=== PATIENT | female | born 1945 | race Caucasian/White ===

== ENCOUNTER 2017-04-22 11:09 | Emergency (ER) | payer OTHER, MEDICARE ==
[2017-04-22] MEDS ORDERED: IBUPROFEN 600 MG TAB PO ONE (11:23)
[2017-04-22 11:29] VITALS: RESP 18
[2017-04-22 11:46] VITALS: BP 156/107; PULSE 85; TEMP 101.7; O2SAT 94
--- NOTE | 2017-04-22 11:46 | EDPHY ---
H & P Time Seen by Provider: 04/22/17 11:16 HPI/ROS: CHIEF COMPLAINT: Cough and fever HISTORY OF PRESENT ILLNESS: 71-year-old female with a history of pneumonia presents with cough and fever. Onset of a moist cough last evening. Associated with subjective fever and fatigue. No associated shortness of breath. No vomiting or diarrhea. Tolerating oral fluids well. REVIEW OF SYSTEMS: Eyes: No visual changes ENT: No sore throat Cardiac: No chest pain Gastrointestinal: No nausea, no vomiting, no abdominal pain Genitourinary: no dysuria Musculoskeletal: No leg pain or swelling Skin: No rash Neurological: No headache Psychiatric: No depression Past Medical/Surgical History: Pneumonia x2 Social History: No recent alcohol Smoking Status: Never smoked Physical Exam: General Appearance: Alert, pleasant, nontoxic-appearing Eyes: Pupils equal and round, no conjunctival pallor or injection ENT, Mouth: Mucous membranes moist Neck: Normal inspection Respiratory: Lungs are clear to auscultation Cardiovascular: Regular rate and rhythm Gastrointestinal: Abdomen is soft and nontender Neurological: A&O, nonfocal, normal gait Skin: Warm and dry, no rash Extremities: normal inspection Psychiatric: Mood and affect normal Constitutional: Initial Vital Signs Temperature (C) 36.6 C 04/22/17 11:23 Heart Rate 77 04/22/17 11:23 Respiratory Rate 18 04/22/17 11:23 Blood Pressure 214/105 H 04/22/17 11:23 O2 Sat (%) 97 04/22/17 11:23 O2 Delivery Mode Room Air Allergies/Adverse Reactions: Penicillins Allergy (Verified 09/14/12 10:27) Home Medications: Medication Instructions Recorded Azithromycin [Zithromax] 250 mg PO DAILY #6 tab 09/14/12 Mometasone Furoate Nasal [Nasonex] 1 sprays NASAL DAILY 09/14/12 Azithromycin [Zithromax] 250 mg PO DAILY #6 tab 04/22/17 Medical Decision Making - Diagnostics Imaging Results: Chest x-ray independently reviewed by me reveals no acute disease. ED Course/Re-evaluation: This patient presents with fever and cough. Chest x-ray reveals no evidence of pneumonia. However, given pneumonia x 2 and similar sx today, I will treat her with Zithromax. Elevated blood pressure noted. Repeat BP 156/101. Pt will f/u with PCP for ongoing BP management. Differential Diagnosis: Differential diagnosis includes though not to pneumonia, hypoxia, empyema, influenza - Data Points Medications Given: Discontinued Medications Ibuprofen (Motrin) 600 mg PO EDNOW ONE Stop: 04/22/17 11:24 Last Admin: 04/22/17 11:40 Dose: 600 mg Departure - Departure Disposition: Home, Routine, Self-Care Clinical Impression: Acute bronchitis Qualifiers: Bronchitis organism: unspecified organism Qualified Code(s): J20.9 - Acute bronchitis, unspecified Condition: Good Instructions: Acute Bronchitis (ED) Additional Instructions: Take Tylenol every 6 hours as needed for fever. Drink plenty of fluids. Return for worsening symptoms or any concerns. Referrals: JOE DOWNS [Primary Care Provider] - As per Instructions Prescriptions: Azithromycin [Zithromax] 250 mg PO DAILY #6 tab
== END 2017-04-22 12:08 | disposition home or self-care (01) ==
LOC: CED 11:09
DX: J20.9 Acute bronchitis, unspecified (principal)
CPT/HCPCS: 71020-PO

== ENCOUNTER 2017-11-21 10:54 | Observation (INO) | payer OTHER, MEDICARE ==
--- NOTE | 2017-11-21 11:17 | CPEKG ---
Heart Rate: 68 RR Interval: 882 P-R Interval: 148 QRSD Interval: 86 QT Interval: 432 QTC Interval: 460 P [place]: 28 QRS [place]: 13 T Wave [place]: -4 EKG Severity - BORDERLINE ECG - EKG Impression: SINUS RHYTHM EKG Impression: BORDERLINE T ABNORMALITIES, ANT-LAT LEADS Electronically Signed By: Get Dillard 23-Nov-2017 10:45:34
[2017-11-21] MEDS ORDERED: NITROGLYCERIN 0.4 MG BTL SL PRN (11:33)
[2017-11-21] MEDS ORDERED: ASPIRIN 81 MG CHEWABLE TAB PO ONE (11:33)
--- NOTE | 2017-11-21 11:39 | EDPHY ---
H & P Stated Complaint: Pt. states 4-5 days elevated BP, chest pressure also and sinus pressure Time Seen by Provider: 11/21/17 10:59 HPI/ROS: CHIEF COMPLAINT: Elevated blood pressure History by patient HISTORY OF PRESENT ILLNESS: 72-year-old woman with a history of hypertension and TIA presents complaining of elevated blood pressure for the past several days. She states that in the mornings it has been around 170/80 or 90 but that sometimes her diastolic goes up into the 120 region. Patient has been on losartan, simvastatin and aspirin for several years since she was diagnosed with the TIA however in the past few months she tapered the amount of medication she is taking and only takes these medicines 2-3 times a week or less. Because her blood pressure began running high again she began taking these medications daily over the past 4 days however she has not taken any medication today. This morning she was alarmed because her blood pressure seemed to be persistently high despite the fact that she got back on her medicines. She has noticed some tightness in her chest which she says she can' t distinguish from her symptoms of sinus congestion and cough but sometimes this gets worse when she exerts herself. She denies any dyspnea. She denies any new leg swelling (she has chronic swell related to a remote history of Waldenstroms lymphoma). Yesterday she noticed dizziness after going up stairs. She has also had feeling of pulsations in her arms and nausea and feeling warm but no diaphoresis. She denies any visual difficulties or focal numbness or weakness. Patient is seek been seen by [facility] in the past and had a negative stress test 2-3 years ago. She says her cardiology tired about a year ago. She has no family history of heart disease. She has no history of diabetes. She has never smoked. REVIEW OF SYSTEMS: As in HPI, and all other systems reviewed and are negative Source: Patient - Personal History Current Tetanus Diphtheria and Acellular Pertussis (TDAP): Yes - Medical/Surgical History Hx Asthma: No Hx Chronic Respiratory Disease: No Hx Diabetes: No Hx Cardiac Disease: No Hx Renal Disease: No Hx Cirrhosis: No Hx Alcoholism: No Hx HIV/AIDS: No Hx Splenectomy or Spleen Trauma: No Other PMH: Med hx-HTN,waldenstron's,DDD,lymphoma,hyperlipidemia,allergies,Hep C- resolved. Surg- - Social History Smoking Status: Never smoked - Physical Exam Exam: General Appearance: Alert, pleasant, nontoxic-appearing. Head: normocephalic, atraumatic Eyes: Pupils equal and round, reactive to light, no pallor or injection. Mouth: Mucous membranes moist. Respiratory: Normal, effort, lungs are clear to auscultation. No wheezes, rales or rhonchi. Cardiovascular: Regular rate and rhythm. S1, S2, no murmurs, gallops or rubs appreciated, no chest wall tenderness Gastrointestinal: Abdomen is soft and nontender, no masses, bowel sounds normal. Back: No CVA tenderness, no bony tenderness Neurological: Awake, alert and oriented x 3, no pronator drift, normal gait, Skin: Warm and dry, no rashes. Musculoskeletal: No deformities or tenderness. Extremities: full range of motion, no edema, DP2+ bilat Psychiatric: Patient has normal affect, there is no agitation. Constitutional: Initial Vital Signs Temperature (C) 36.5 C 11/21/17 11:05 Heart Rate 70 11/21/17 11:05 Respiratory Rate 16 11/21/17 11:05 Blood Pressure 187/116 H 11/21/17 11:05 O2 Sat (%) 96 11/21/17 11:05 O2 Delivery Mode Room Air Allergies/Adverse Reactions: Penicillins Allergy (Verified 11/21/17 11:14) Home Medications: Medication Instructions Recorded Aspirin 325 mg (*) 11/21/17 Flonase Nasal [place] 11/21/17 Losartan Potassium 11/21/17 Simvastatin 11/21/17 Medical Decision Making - Diagnostics EKG Interpretation: Normal sinus rhythm at a rate of 78 with normal axis, normal intervals and diffuse flattening of the ST segments particularly in the lateral leads. No evidence of STEMI. Impression: Abnormal EKG Imaging Results: Imaging Impressions Chest X-Ray 11/21/17 11:33 Impression: No active cardiopulmonary disease seen.. ED Course/Re-evaluation: 72-year-old woman presents with elevated blood pressure and chest tightness an abnormal EKG. On arrival here patient's blood pressure was quite elevated. She was placed on a computer hardware designer and remained in normal sinus rhythm. An IV was placed. She was given aspirin. She was given nitroglycerin. Patient's chest tightness resolved after a single nitroglycerin. Her blood pressure also improved with this and no further blood pressure intervention was done. Patient's labs are unremarkable and 1st troponin is negative. Given the patient's multiple risk factors and abnormal EKG she will be admitted to [facility] for further evaluation and treatment. I discussed with the patient. I discussed with the hospitalist remote operations producer, Minal Marcos and patient will be admitted to Dr. Mcdonald. Total critical care time was 35 min exclusive of procedures which included active management and re-evaluation of ongoing chest pain and hypertension.. - Data Points Laboratory Results: Laboratory Results 11/21/17 11:35 11/21/17 11:35 11/21/17 11/21/17 11:35 11:35 WBC 3.26 10^3/uL L 10^3/uL (3.80-9.50) RBC 4.65 10^6/uL 10^6/uL (4.18-5.33) Hgb 14.5 g/dL g/dL (12.6-16.3) Hct 41.4 % % (38.0-47.0) MCV 89.0 fL fL (81.5-99.8) MCH 31.2 pg pg (27.9-34.1) MCHC 35.0 g/dL g/dL (32.4-36.7) RDW 11.9 % % (11.5-15.2) Plt Count 236 10^3/uL 10^3/uL (150-400) MPV 10.1 fL fL (8.7-11.7) Neut % (Auto) 52.5 % % (39.3-74.2) Lymph % (Auto) 28.2 % % (15.0-45.0) [place] % (Auto) 14.4 % H % (4.5-13.0) Eos % (Auto) 3.4 % % (0.6-7.6) Baso % (Auto) 1.2 % % (0.3-1.7) Nucleat RBC Rel Count 0.0 % % (0.0-0.2) Absolute Neuts (auto) 1.71 10^3/uL 10^3/uL (1.70-6.50) Absolute Lymphs (auto) 0.92 10^3/uL L 10^3/uL (1.00-3.00) Absolute Monos (auto) 0.47 10^3/uL 10^3/uL (0.30-0.80) Absolute Eos (auto) 0.11 10^3/uL 10^3/uL (0.03-0.40) Absolute Basos (auto) 0.04 10^3/uL 10^3/uL (0.02-0.10) Absolute Nucleated RBC 0.00 10^3/uL 10^3/uL (0-0.01) Immature Gran % 0.3 % % (0.0-1.1) Immature Gran # 0.01 10^3/uL 10^3/uL (0.00-0.10) Sodium 140 mEq/L mEq/L (135-145) Potassium 4.0 mEq/L mEq/L (3.5-5.2) Chloride 106 mEq/L mEq/L (97-110) Carbon Dioxide 26 mEq/l mEq/l (22-31) Anion Gap 8 mEq/L mEq/L (8-16) BUN 15 mg/dL mg/dL (7-23) Creatinine 0.6 mg/dL mg/dL (0.6-1.0) Estimated GFR > 60 Glucose 279 mg/dL H mg/dL (70-100) Calcium 9.0 mg/dL mg/dL (8.5-10.4) Troponin I < 0.012 ng/mL ng/mL (0.000-0.034) NT-Pro-B Natriuret Pep 118 pg/mL pg/mL (0-125) Medications Given: Nitroglycerin (Nitrostat) 0.4 mg SL Q5M PRN PRN Reason: Chest Pain Last Admin: 11/21/17 11:45 Dose: 0.4 mg Discontinued Medications Aspirin (Aspirin) 324 mg PO EDNOW ONE Stop: 11/21/17 11:34 Last Admin: 11/21/17 11:43 Dose: 324 mg Departure - Departure Disposition: [facility] Acute Clinical Impression: Chest pain Qualifiers: Chest pain type: unspecified Qualified Code(s): R07.9 - Chest pain, unspecified Hypertension Qualifiers: Hypertension type: unspecified Qualified Code(s): I10 - Essential (primary) hypertension Condition: Good Referrals: JOE DOWNS [Primary Care Provider] - As per Instructions
[2017-11-21 11:44] LABS: PLATELET COUNT 236 10^3/uL (150-400)
[2017-11-21] MEDS ORDERED: ONDANSETRON DISINTEGRATING 4 MG TAB PO PRN (15:25)
[2017-11-21] MEDS ORDERED: ACETAMINOPHEN 325 MG TAB PO PRN (15:25)
[2017-11-21] MEDS ORDERED: ONDANSETRON 4 MG/2 ML VIAL IVP PRN (15:25)
[2017-11-21] MEDS ORDERED: LOSARTAN POTASSIUM 50 MG TAB PO ONE (15:52)
[2017-11-21] MEDS ORDERED: LORazepam 0.5 MG TAB PO PRN (16:08)
[2017-11-21] MEDS: PANTOPRAZOLE SODIUM 40 MG TAB PO SCH (16:33)
--- NOTE | 2017-11-21 16:43 | GHP ---
[f rep st] HISTORY AND PHYSICAL DATE OF ADMISSION: 11/21/2017 CHIEF COMPLAINT: Chest pain. HISTORY OF PRESENT ILLNESS: A 72-year-old female with a history of TIA in the past, who presents aft er sudden onset of substernal chest discomfort the morning of presentation. The patient reports know ing her TIA history and history of elevated blood pressure that she should present for evaluation, pr esented to the [facility] and was admitted for management of her blood pressure as well as her chest symptom s. The patient describes no intermittent symptoms preceding this and no strict limitations in her ex ertion or exercise tolerance related to pain or shortness of breath preceding her presentation. The patient describes burping while she was at the [facility] and having complete resolution of her chest pain. The patient denies any recent changes in her bowel habits, any dysuria, hematuria, lower extremity e randall. She has been under enormous amounts of stress with the recent loss of her spouse and has had s evere insomnia. She had decided to self-wean her blood pressure medications, aspirin, and statin in the course of the last 14 days. When she measured her blood pressures and saw her systolic climbing, it prompted her presentation to the [facility]. PAST MEDICAL HISTORY: 1. History of a TIA. 2. Hypertension. 3. Hiatal hernia. 4. Grief/anxiety. SOCIAL HISTORY: Negative for tobacco. Occasional alcohol. No illicit drugs or marijuana. FAMILY HISTORY: Positive for hiatal hernias and stroke. ADVANCE DIRECTIVES: Patient is full cor, full tube. REVIEW OF SYSTEMS: A 10-point review of systems is negative with the exception of that reported in t he HPI. PHYSICAL EXAMINATION: VITAL SIGNS: Blood pressure 213/91, heart rate 75, respiratory rate 15, 94% o n room air, 36.5. GENERAL: This is a healthy-appearing middle-aged female, in no acute distress. H EENT: Notable for moist mucous membranes. Eye exam is negative for any icterus. CARDIAC: Patient has regular rate and rhythm. A quiet systolic murmur is heard best at the right upper sternal border . PULMONARY: Good respiratory effort. Clear to auscultation bilaterally. GASTROINTESTINAL: Posit sandra bowel sounds. Abdomen soft and nontender. MUSCULOSKELETAL: Negative for any lower extremity ed trang. SKIN: Negative for any rashes. NEUROLOGIC: She is alert and oriented x3. PSYCHIATRIC: She appears anxious and depressed on my interview and examination. DATA: White count 3.2, hematocrit 41.4, platelets of 236. Creatinine 0.6, blood glucose of 279. Tr oponin less than 0.012. Chest x-ray, which I personally reviewed and interpreted, shows no acute inf iltrates or edema. EKG, which I personally reviewed and interpreted, shows sinus rhythm, normal axis , normal intervals, with nonspecific ST-T flattening across the precordium. ASSESSMENT AND PLAN: This is a 72-year-old female with a history of vascular disease, presenting wit h chest pain and uncontrolled hypertension. 1. Hypertensive urgency: The patient is presenting with chest symptoms, systolics in the 200s. Ja l admit the patient to the PCU. Initiate first her home medications and then additional medications if needed, if we do not establish good systolic control. We will follow the patient on telemetry and additionally cycle troponins. 2. Acute chest pain: Certainly worrisome for ischemic disease with her history and presentation wit h uncontrolled hypertension. We will work aggressively on getting her blood pressure under good cont rol and follow her troponins overnight. If the patient rules out overnight, I think she would be an excellent candidate for a treadmill stress test in the morning. 3. History of transient ischemic attack: We will continue patient's aspirin, statin, and blood pres sure control, as above. 4. Prophylaxis with Lovenox. 5. Diet: Cardiac. 6. Disposition: I expect less than 2 midnights if the patient rules out this evening and has negati ve stress testing in the morning. I have discussed the case with the [facility] provid er. The patient will be triaged to the PCU for care. /[id number]/MODL
[2017-11-21] MEDS ORDERED: hydrALAZINE 20 MG/ML VIAL IVP PRN (20:15)
[2017-11-22] MEDS: PANTOPRAZOLE SODIUM 40 MG TAB PO SCH (08:14)
[2017-11-22] MEDS ORDERED: LOSARTAN POTASSIUM 50 MG TAB PO SCH (09:00)
[2017-11-22] MEDS ORDERED: PRAVASTATIN SODIUM 20 MG TAB PO SCH (09:00)
[2017-11-22] MEDS ORDERED: MULTIVITAMINS 1 EACH TAB PO SCH (09:00)
[2017-11-22] MEDS ORDERED: ENOXAPARIN 40 MG/0.4 ML SYR SC SCH (09:00)
[2017-11-22] MEDS ORDERED: FLUTICASONE NASAL 120 SPRAYS/16 GM MDI EACHNARE SCH (09:00)
[2017-11-22] MEDS ORDERED: Herbals/Supplements -Info Only PO SCH (09:00)
[2017-11-22] MEDS ORDERED: ASPIRIN 325 MG TAB PO SCH (09:00)
--- NOTE | 2017-11-22 10:22 | PDCARST ---
CAR Stress Test Results Type of Stress Test: TM stress test Indication: cp Description of Procedure: After informed consent was obtained, pt was exercised according to Zay Protocol. Monitoring was performed with standard stress relay tester electrode placement. Vital signs were monitored according to protocol throughout the procedure. STRESS EKG AND HEMODYNAMIC DATA. Exercise time: 5: 30 min. This is equivalent to: 6.6 METS. Resting heart rate: 89 bpm. Resting blood pressure: 124/74 mmHg. Resting O2 saturation: 96 %. Peak heart rate: 135 bpm. This is 90% of age predicted maximum heart rate response. Peak blood pressure: 170/84 mmHg. Exercise O2: 96%. Arrhythmias: occasional PVCs at rest / rare PACs at rest. Reason for termination: The test was stopped due to dizziness. Symptoms: The patient experienced no typical symptoms of angina during stress or recovery. STRESS TEST ANALYSIS. Baseline ECG: SR with mild nonspecific ST abn. Stress ECG: sinus tach. exercise induced ischemic ECG changes: No. Rhythm: rare PVC and PAC arrhythmias noted during pre-exercise and recovery. Blood pressure: Normal blood pressure response to exercise. Exercise tolerance: The patient has normal exercise tolerance adjusted for age and gender. Symptoms: No exercise induced symptoms. Impression: IMPRESSIONS: Stress ECG is negative for ischemia. The Platt Treadmill Score is 5, consistent with low cardiovascular risk (<1% annual mortality). Conclusion: Low risk TM stress test
[2017-11-22 10:49] VITALS: BP 119/79
--- NOTE | 2017-11-22 17:32 | GDS ---
[f rep st] DISCHARGE SUMMARY DISCHARGE DIAGNOSES: Include: 1. Chest pain. 2. Hypertensive urgency. 3. Hyperglycemia. 4. History of transient ischemic attack. HISTORY OF PRESENT ILLNESS: A 72-year-old female who presents to the emergency department with compl aints of chest discomfort and elevated blood pressure. For details of patient's initial presentation , please see the history and physical dated 11/21/2017. CONSULTATIVE SERVICES: None. PROCEDURES: On 11/22/2017, patient underwent a cardiac treadmill stress test, which was negative for any inducible ischemia. HOSPITAL COURSE BY ISSUE: 1. Chest pain: Patient has certain risk factors for ischemic disease; felt appropriate to admit and rule out with troponins and EKGs. Patient was taken the morning after admission for a treadmill str ess test, which was entirely negative for any worrisome inducible ischemia. The patient will be cont inued on her outpatient medications which include aspirin and statin, as well as an ARB, and she is t o follow in the outpatient setting with her primary care provider. 2. Hypertensive urgency/malignant hypertension: Patient presented having self-titrated her home ant ihypertensives in the week preceding her presentation. Systolic blood pressures were in the 200s at presentation. She was restarted on her home dose of losartan and additionally started on Norvasc 10, and required p.r.n. dosing of hydralazine overnight. The morning after admission, blood pressures w ere markedly better controlled with systolics in the one-teens. It was my decision to continue her l osartan 100 but continue a decreased dose of Norvasc 5 mg daily so as to avoid dropping her blood pre ssure too much in the outpatient setting. I have asked that she measure her blood pressures daily an d present in 1 week's time to her primary care provider for a blood pressure assessment and titration of medications if needed. 3. Hyperglycemia: Patient was noted to have an elevated blood glucose at the time of presentation. A hemoglobin A1c has been ordered and is pending at the time of disposition. 4. History of TIA. The patient is appropriately on treatment with aspirin, statin, and an ARB use. As above, those medications have been continued. PENDING STUDIES: At the time of this dictation include a hemoglobin A1c, upon which per her primary care will follow up. FOLLOW UP APPOINTMENTS: Include with her PCP in the next week's time for laboratory check, blood pre ssure check, and followup hemoglobin A1c. TIME SPENT: I spent greater than 30 minutes in the planning and coordination of this discharge. /[id number]/MODL
--- NOTE | 2017-11-22 17:33 | ASDISCHSUM ---
Discharge Information Plan Status:Home with No Needs Medically Cleared to Leave: Discharge Date:11/22/2017 12:09 PM CM D/C Disposition:Home, Routine, Self-Care ADT D/C Disposition:Home, Routine, Self-Care Projected Discharge Date:11/22/2017 12:09 PM Transportation at D/C:Family Discharge Delay Reason: Follow-Up Date:11/22/2017 12:09 PM Discharge Slot: Final Diagnosis: Placement Information Patient Contact Information Contact Name:JUAREZ Relationship: Address:[address] City:[place] Alternate Phone: [facility]/Zip Code:[place] [address] Email: Financial Information Financial Class:Medicare Primary Plan Desc:MEDICARE OUTPATIENT Primary Plan Number:[id number] Secondary Plan Desc:BROWN/MDR SUPPLEMENT Secondary Plan Number:[id number] Assessment Information Intervention Information
== END 2017-11-22 12:09 | disposition home or self-care (01) ==
LOC: CED 10:54 → CEDHOLD 13:28 → F2W 15:10
PROVIDERS: ADMIT Hospitalist; ATTEND Hospitalist
DX: R07.89 Other chest pain (principal); I16.0 Hypertensive urgency; E78.5 Hyperlipidemia, unspecified; Z86.73 Personal history of transient ischemic attack (TIA), and cerebral infarction without residual deficits; Z79.82 Long term (current) use of aspirin; R73.9 Hyperglycemia, unspecified
CPT/HCPCS: 71045; 93005; 99291; G0378; J0360; J1650; 80048-PO; 83880-PO; 84484-PO

== ENCOUNTER 2018-01-12 20:31 | Emergency (ER) | payer OTHER, MEDICARE ==
[2018-01-12] MEDS ORDERED: DOXYCYCLINE 100 MG PREPACK#2 BTL TAKEHOME ONE (21:13)
--- NOTE | 2018-01-12 21:13 | EDPHY ---
H & P Stated Complaint: cough and fever worse today Time Seen by Provider: 01/12/18 20:40 HPI/ROS: CHIEF COMPLAINT: Cough and fever HISTORY OF PRESENT ILLNESS: This is a 72-year-old female who presents with several day history of signs and symptoms of allergies, which she experiences in the springtime. She reports burning itching eyes and sinus drainage. She also has a history of sinus infections. She notes increasing sinus drainage with a cough that she believes is the result of irritation due to postnasal drainage. She has fullness across her face. Today she experienced fever. She became concerned because this illness seems to be worsening. She reports a history of immune deficiency. REVIEW OF SYSTEMS: A ten point review of systems was performed and is negative with the exception of the items mentioned in the HPI. Past medical history: 1. Immune deficiency 2. Hypertension 3. Hyperlipidemia 4. Hepatitis-C, treated Social history: She lives independently. General Appearance: Alert. Vital signs reviewed. Initial blood pressure 168/ 104. Afebrile. Eyes: Pupils equal and round, no conjunctival injection, no discharge. Anicteric. ENT, Mouth: Mucous membranes are moist, no oropharyngeal erythema or edema. Tenderness across the maxillary sinuses bilaterally. Neck: Mild anterior cervical lymphadenopathy, supple. Respiratory: Lungs are clear to auscultation; no wheezes, rales, or rhonchi. Cardiovascular: Regular rate and rhythm; no murmur, rub, or gallop. Gastrointestinal: Abdomen is soft and nontender, no masses or organomegaly, bowel sounds normal. Skin: Warm and dry, no rashes on exposed skin, normal color. Back: Nontender to palpation over the thoracolumbar spine. No CVAT. Extremities: No lower extremity edema, no calf tenderness or swelling. Neurological: Alert and oriented. Moving all four extremities easily and equally. Psychiatric: Normal affect. - Personal History Current Tetanus Diphtheria and Acellular Pertussis (TDAP): Yes - Medical/Surgical History Hx Asthma: No Hx Chronic Respiratory Disease: No Hx Diabetes: No Hx Cardiac Disease: No Hx Renal Disease: No Hx Cirrhosis: No Hx Alcoholism: No Hx HIV/AIDS: No Hx Splenectomy or Spleen Trauma: No Other PMH: Med hx-HTN,waldenstron's,DDD,lymphoma,hyperlipidemia,allergies,Hep C- resolved. Surg- - Social History Smoking Status: Never smoked Constitutional: Initial Vital Signs Temperature (C) 37.4 C 01/12/18 20:41 Heart Rate 86 01/12/18 20:41 Respiratory Rate 18 01/12/18 20:41 Blood Pressure 168/104 H 01/12/18 20:41 O2 Sat (%) 95 01/12/18 20:41 O2 Delivery Mode Room Air Allergies/Adverse Reactions: Penicillins Allergy (Verified 11/21/17 11:14) Home Medications: Medication Instructions Recorded Aspirin [Aspirin 325 mg (*)] 325 mg PO DAILY 11/21/17 Fluticasone Nasal [Flonase Nasal 2 sprays NASAL DAILY 11/21/17 [place]] Herbals/Supplements -Info Only 1 ea PO DAILY 11/21/17 Losartan Potassium 100 mg PO DAILY 11/21/17 Multivitamins [Multivitamin (*)] 1 each PO DAILY 11/21/17 Simvastatin 10 mg PO DAILY 11/21/17 amLODIPine BESYLATE [Norvasc 5 mg 5 mg PO DAILY #30 tab 11/22/17 (*)] Doxycycline Hyclate [Doxycycline] 100 mg PO BID #12 cap 01/12/18 Medical Decision Making ED Course/Re-evaluation: I suspect that she has sinusitis and with the recent development of fever I am recommending the initiation of antibiotics. She is being started on doxycycline. She does not appear septic. She is not dehydrated. She is not hypoxic. Differential Diagnosis: Fever in adults including but not limited to pneumonia, sinusitis, urinary tract infection, viral syndrome, and influenza. - Data Points Medications Given: Discontinued Medications Doxycycline Hyclate (Vibramycin 100 Mg Prepack#2) 1 btl TAKEKELLIHER EDNOW ONE Stop: 01/12/18 21:14 Last Admin: 01/12/18 21:23 Dose: 1 btl Departure - Departure Disposition: Home, Routine, Self-Care Clinical Impression: Sinusitis Qualifiers: Sinusitis location: maxillary Chronicity: acute Recurrence: recurrent Qualified Code(s): J01.01 - Acute recurrent maxillary sinusitis Condition: Good Instructions: Doxycycline (By mouth), Sinusitis (ED) Additional Instructions: Continue with all of your usual sinus treatments. Adult Pain & Fever Control: We recommend Acetaminophen (Tylenol) and Ibuprofen (Motrin,Advil) for pain and fever control. When fever is high or pain severe, both drugs can be used at the same time, but at different intervals. Please note the time differences. Your dose is: Acetaminophen 650mg every 4 to 6 hours Ibuprofen 400mg every 8 hours with food OR Note: do not take Acetaminophen with Hydrocodone (Vicodin, Lortab) or Oycodone (Percocet). These medications also contain Acetaminophen. No more than 3000mg of Acetaminophen should be taken in 24 hours (for an adult). Try the [employer] teas. You can buy these in the grocery store. Add some honey. Lots of rest, lots of fluids. Your blood pressure was high initially in the emergency department. Be sure that you take your blood pressure medication as prescribed. You should follow up with your primary care provider within the next few weeks to have your blood pressure rechecked. Referrals: JOE DOWNS [Primary Care Provider] - As per Instructions Prescriptions: Doxycycline Hyclate [Doxycycline] 100 mg PO BID #12 cap
[2018-01-12 21:26] VITALS: BP 134/93
== END 2018-01-12 21:27 | disposition home or self-care (01) ==
LOC: CED 20:31
DX: J01.01 Acute recurrent maxillary sinusitis (principal); I10 Essential (primary) hypertension; Z79.82 Long term (current) use of aspirin